=== PATIENT | male | born 1970 | race Asian ===

== ENCOUNTER 2016-12-02 19:40 | Emergency (ER) | payer OTHER ==
[~2016-12-02] VITALS: Ht 180.3 cm; Wt 77.1 kg
[2016-12-02] MEDS ORDERED: LIDOCAINE 1%-EPI 1:100,000 20 ML VIAL TP ONE (21:30)
[2016-12-02] MEDS ORDERED: LIDOCAINE 2%-EPI 1:100,000 20 ML VIAL TP ONE (21:45)
[2016-12-02] MEDS ORDERED: LIDOCAINE 2%-EPI 1:100,000 20 ML VIAL ONE (21:48)
--- NOTE | 2016-12-02 22:01 | NUR ---
Patient discharged to home in stable conditon. Written and verbal after care instructions given. Patient verbalizes understanding of instructions.
== END 2016-12-02 22:02 | disposition home or self-care (01) ==
LOC: ER 19:43
DX: K64.5 Perianal venous thrombosis (principal); Z95.2 Presence of prosthetic heart valve; Z79.01 Long term (current) use of anticoagulants
CPT/HCPCS: 46083; 99284; A4217; A4663; J3490 ×2

== ENCOUNTER 2017-01-01 19:32 | Emergency (ER) | payer OTHER ==
[~2017-01-01] VITALS: Ht 180.3 cm; Wt 79.4 kg
[2017-01-01 20:45] LABS: BASOPHILS # (AUTO) 0.1 K/uL (0.0-8.0); BASOPHILS % (AUTO) 0.5 % (0.0-2.0); EOSINOPHILS # (AUTO) 0.4 K/uL (0.0-0.7); EOSINOPHILS % (AUTO) 4.3 % (0.0-7.0); HEMATOCRIT 46.4 % (40-50); HEMOGLOBIN 14.5 G/DL (14.0-18.0); LYMPHOCYTES # (AUTO) 2.9 K/UL (0.8-4.8); LYMPHOCYTES % (AUTO) 28.5 % (20.5-51.5); MEAN CORPUSCULAR HEMOGLOBIN 21.2 UUG (27.0-31.0); MEAN CORPUSCULAR HGB CONC 31 g/dL (32.0-37.0); MEAN CORPUSCULAR VOLUME 67.9 FL (82.0-92.0); MONOCYTES # (AUTO) 0.8 K/UL (0.1-1.30); MONOCYTES % (AUTO) 8.2 % (0.0-11.0); NEUTROPHILS # (AUTO) 6.1 K/UL (1.8-8.9); NEUTROPHILS % (AUTO) 58.5 % (38.5-71.5); PLATELET COUNT (AUTO) 258 K/UL (150-450); WHITE BLOOD COUNT (AUTO) 10.3 K/UL (4.0-11.2)
[2017-01-01 20:53] LABS: RED BLOOD CELL COUNT(AUTO) 6.83 MIL/UL (4.7-6.1)
[2017-01-01 20:55] LABS: CREATININE 0.9 mg/dL (0.6-1.3); POTASSIUM 4.1 mmol/L (3.5-5.1)
[2017-01-01 21:00] LABS: BILIRUBIN,TOTAL 0.3 mg/dL (0.2-1.0); TOTAL PROTEIN, SERUM 7.7 g/dL (6.4-8.2)
--- NOTE | 2017-01-01 21:17 | NUR ---
Patient discharged to home in stable conditon. Written and verbal after care instructions given. Patient verbalizes understanding of instructions.
[2017-01-01 21:36] LABS: EOSINOPHILS % (MANUAL) 3 % (0-8); LYMPHOCYTES % (MANUAL) 24 % (20-40); MONOCYTES % (MANUAL) 11 % (2-10); NEUTROPHILS % (MANUAL) 62 % (42-75)
== END 2017-01-01 21:18 | disposition home or self-care (01) ==
LOC: ER 19:33
DX: R50.9 Fever, unspecified (principal); K60.2 Anal fissure, unspecified; R05 Cough; K59.00 Constipation, unspecified; R21 Rash and other nonspecific skin eruption; M79.644 Pain in right finger(s); Z95.2 Presence of prosthetic heart valve; J18.9 Pneumonia, unspecified organism
CPT/HCPCS: 36415; 71010; 80053; 85025; 85610; 99285; A4663